=== PATIENT | female | born 2000 | race Caucasian/White ===

== ENCOUNTER → 2025-02-24 | Outpatient (CLI) | payer OTHER, MEDICAID, SELFPAY ==
--- NOTE | 2025-02-24 | XR_ITS ---
Examination: Lumbar spine, 5 views Technique: Lumbar spine AP, lateral, coned lateral lower lumbar spine, bilateral obliques 5 views Exam date and time: February 24, 2025 1242 hours INDICATIONS: Low back pain beginning 2 months ago. FINDINGS: Satisfactory alignment lumbar vertebral bodies No lumbar fracture Mild disc narrowing L5-S1 No spondylolisthesis IMPRESSION: Mild disc narrowing L5-S1
--- NOTE | 2025-02-24 | XR_ITS ---
Examination: Sacrum and coccyx 3 views TECHNIQUE: AP inclined AP lateral sigmoid are 6 3 views Date and time: February 24, 2025 1248 hours INDICATIONS: Sacral pain 2 months. FINDINGS: Mild to moderate sacroiliitis No sacral or coccygeal fracture IMPRESSION: Mild to moderate bilateral sacroiliitis
== END | disposition home or self-care (01) ==
LOC: CDIM 12:06
PROVIDERS: PCP Physician Assistant; Referring Provider Physician Assistant; Visit Provider Physician Assistant
DX: M48.07 Spinal stenosis, lumbosacral region (principal); M46.1 Sacroiliitis, not elsewhere classified
CPT/HCPCS: 72110; 72220

== ENCOUNTER 2025-05-09 13:30 | Outpatient (RCR) | payer OTHER, MEDICAID, SELFPAY ==
--- NOTE | 2025-05-01 13:44 | PT.OIERPT ---
PT OP Initial Eval Patient Information Outpatient Physical Therapy Treatment Date: 05/01/25 Visit Reasons: Back pain Medical Diagnosis: M53.3 Treatment Dx #1: LBP Treatment Dx #2: sacral pain Start of Care: 05/01/25 Date of Onset: 4 months ago Smoking Status Smoking Status: Never smoker Initial Assessment Subjective: Pt is 24 yr old female who reports LBP and tailbone pain attributed to nursing her 8 month old son and sitting for along time. Increased pain with bending fwd, prolonged sitting and lifting. PMH: L knee reconstructions x4 Imaging: Xray of L/S Mild disc narrowing L5-S1 Pt goal: decreased pain Objective: Trunk ArOM: ? B SB 50% of normal with pain ? Extension: 50% with pain around L4-5, L5-S1 ? Flexion: 10 from floor ? B rotation: 60% ? R SLR ROM: 45 deg ? TTP: moderate paraspinals L5-S1, R SI joint ? Neuro: R SLR: positive SHRUTI's: positive R Assessment: Pt presents with trunk extension sensitivity consistent with R SI joint pain and imaging that shows lumbar disc narrowing at L5-S1. Pt requires skilled therapy to meet goals and has fair rehab potential. PT recommends SI belt and she was given example printout. Eval followed by HEP. Short Term and Snf Goals ? 1. Ind with HEP ? 2. Improved sitting tolerance to 60 minutes with <=3/10 LBP ? 3. Decreased lower paraspinal TTP from mod to min 4. Improved HH chore tolerance to at least 30 minutes with <=3/10 LBP and no ?increase in LE ssx ? Treatment Plan 1. Manual therapy ? 2. Therex ? 3. Modalities as indicated, moist heat, ice, estim, mechanical traction Frequency and Duration: 1-2x a week for 16 visits plus the evaluation Certification Dates: 05/01/25 to 07/30/25 Procedure Charges OP PT Eval Mod Complex 30 minutes: Yes
--- NOTE | 2025-05-09 14:17 | PT.ODAYNRPT ---
PT Outpatient Daily Note OP Daily Note Outpatient Physical Therapy Treatment Date: 05/09/25 Visit Reasons: Back pain Subjective: Pt reports LBP is worse when sitting, shared that she has been breast feeding laying down and trying to spend less time sitting. Objective: Please see flow sheet for ther ex list. Assessment: Pt instructed on posterior pelvis tilt exercise pt able to perform with good form first rep., no complaints. Plan: Continue with POC. Length of Time (minutes) of Treatment: 30 Minutes Procedure Charges Therapeutic Exercise 30 minutes: Yes
== END 2025-05-11 23:59 | disposition home or self-care (01) ==
LOC: CPTX 13:30
PROVIDERS: PCP Physician Assistant; Referring Provider Physician Assistant; Visit Provider Physician Assistant
DX: M54.50 Low back pain, unspecified (principal); M53.3 Sacrococcygeal disorders, not elsewhere classified
CPT/HCPCS: 97110; 97162

== ENCOUNTER 2025-06-08 14:30 | Outpatient (RCR) | payer OTHER, MEDICAID, SELFPAY ==
--- NOTE | 2025-05-25 15:44 | PT.ODAYNRPT ---
PT Outpatient Daily Note OP Daily Note Outpatient Physical Therapy Treatment Date: 05/25/25 Visit Reasons: Back pain Subjective: Pt reports LBP is a little better but avoid sitting prolonged as best she can because that is what aggravates the pain in her tail bone. Objective: Please see flow sheet for ther ex list. Assessment: Added eduardo pose stretch exercise pt reports some pain relief with exercise. Plan: Continue with pOC. Add MT. Length of Time (minutes) of Treatment: 30 Minutes Procedure Charges Therapeutic Exercise 30 minutes: Yes
--- NOTE | 2025-06-01 17:17 | PT.ODAYNRPT ---
PT Outpatient Daily Note OP Daily Note Outpatient Physical Therapy Treatment Date: 06/01/25 Visit Reasons: Back pain Subjective: Continued LBP Objective: See f/S for therex Mechanical traction L/S x7' at 20 lbs Assessment: Good response to prone extension and traction to reduce LBP Plan: Continue per POC Length of Time (minutes) of Treatment: 30 Minutes Procedure Charges Therapeutic Exercise 30 minutes: Yes
--- NOTE | 2025-06-08 14:51 | PT.ODS1RPT ---
PT OP Progress/Discharge Note Date of Service: 06/08/25 Progress Note/DC Note Progress Note/Discharge Note: DC Note Patient Information Visit Reasons: Back pain Service Continue Service or Discharge: Discharge Discharge Date: 06/08/25 Status Subjective: Not much change in LBP since starting therapy. The LB feels sore during and after therapy and pain is about the same day to day Objective: Trunk AROM: Extension: 40% of full with pain FB: 12 from floor with pain TTP: moderate of lumbar paraspinals Assessment: Pt has attended the eval and 4 Rx sessions with limited progress with therapy goals due to continued LBP. She hasn't met goals and would benefit from further diagnostic imaging of L/S such as MRI. Thank you for your referrals. Plan: D/C Procedure Charges Therapeutic Exercise 15 minutes: Yes
== END 2025-06-11 23:59 | disposition home or self-care (01) ==
LOC: CPTX 14:30
PROVIDERS: PCP Physician Assistant; Referring Provider Physician Assistant; Visit Provider Physician Assistant
DX: M54.50 Low back pain, unspecified (principal); M53.3 Sacrococcygeal disorders, not elsewhere classified
CPT/HCPCS: 97110